=== PATIENT | female | born 1975 | race Caucasian/White ===

== ENCOUNTER → 2024-01-31 | Outpatient (CLI) | payer BC, SELFPAY ==
[2024-01-31 09:41] LABS: Basophils # (Auto) 0.1 Thou/mm3 (0.0-0.2); Basophils % (Auto) 1 % (0-2.5); Eosinophils # (Auto) 0.1 Thou/mm3 (0.0-0.5); Eosinophils % (Auto) 2 % (0-10); Hemoglobin 13.8 g/dL (12.0-16.0); Immature Granulocytes % (Auto) 0 % (0-0); Immature Granulocytes Auto 0.01 Thou/mm3 (0.00-0.00); Lymphocytes # (Auto) 2.2 Thou/mm3 (1.0-4.8); Lymphocytes % (Auto) 36 % (10-50); Mean Corpuscular HGB Conc 34.5 g/dl (31.0-37.0); Mean Corpuscular Hemoglobin 30.9 pg (25.0-35.0); Mean Corpuscular Volume 90 fL (80-100); Monocytes # (Auto) 0.4 Thou/mm3 (0.0-0.8); Monocytes % (Auto) 6 % (0-12); Neutrophils # (Auto) 3.4 Thou/mm3 (1.8-7.7); Neutrophils % (Auto) 55 % (37-80); Nucleated Red Blood Cell % 0 /100 WBC (0); Platelet Count 425 Thou/mm3 (140-440); Red Blood Count 4.46 Miln/mm3 (4.00-5.20); White Blood Count 6.2 Thou/mm3 (3.6-11.0)
[2024-01-31 09:56] LABS: Alanine Aminotransferase 36 U/L (10-49); Albumin, Serum 4.6 gm/dL (3.5-5.0); Albumin/Globulin Ratio 1.6 (1.2-2.2); Alkaline Phosphatase 80 U/L (46-116); Anion Gap 6 (7-16); Aspartate Amino Transferase 22 U/L (0-34); BUN/Creatinine Ratio 26 Ratio (12-20); Bilirubin,Total 0.7 mg/dL (0.3-1.2); Blood Urea Nitrogen 21 mg/dL (9-23); Calcium 9.4 mg/dL (8.3-10.6); Calcium (Corrected) 9.4 mg/dL (8.5-10.1); Carbon Dioxide 29.1 mMol/L (20.0-31.0); Chloride 106 mMol/L (98-107); Creatinine (Component) 0.8 mg/dL (0.6-1.3); Globulin 2.9 gm/dL (2.3-3.5); Glucose 97 mg/dL (74-106); Osmolality,Calculated 284 (275-295); Potassium 4.5 mMol/L (3.4-5.1); Sodium 141 mMol/L (136-145); Total Protein 7.5 gm/dL (5.7-8.2); eGFR > 60 See Note
[2024-01-31 10:09] LABS: Glucose Estimated Average 100 mg/dL (80-131); Hemoglobin A1C 5.1 % Hgb (4.8-6.0)
== END | disposition home or self-care (01) ==
PROVIDERS: Referring Provider Specialist; Visit Provider Specialist
DX: K21.00 Gastro-esophageal reflux disease with esophagitis, without bleeding (principal); K44.9 Diaphragmatic hernia without obstruction or gangrene; R13.14 Dysphagia, pharyngoesophageal phase
CPT/HCPCS: 36415; 80053; 83036; 85025

== ENCOUNTER → 2024-03-07 | Outpatient (CLI) | payer BC, SELFPAY ==
--- NOTE | 2024-03-07 09:19 | XR_ITS ---
Examination: Sacrum and coccyx 3 views Technique: AP inclined AP lateral sacrum and coccyx 3 views Exam date and time: March 07, 2024 0920 hrs. Indications: Patient fell 2 weeks ago with injury to the sacrum, sacrococcygeal pain. Findings: No acute sacral or coccygeal fracture Moderate osteopenia Impression: No acute sacral or coccygeal fracture
== END | disposition home or self-care (01) ==
PROVIDERS: PCP Physician Assistant; Referring Provider Nurse Practitioner; Visit Provider Nurse Practitioner
DX: S39.92XA Unspecified injury of lower back, initial encounter (principal); W19.XXXA Unspecified fall, initial encounter
CPT/HCPCS: 72220

== ENCOUNTER → 2024-04-12 | Outpatient (CLI) | payer BC, SELFPAY ==
--- NOTE | 2024-04-12 15:15 | XR_ITS ---
Examination: Screening digital mammography, bilateral Computer aided detection 3-D breast Tomosynthesis, bilateral Date and time of exam: April 12, 2024 1515 hours Comparison March 02, 2023 Indication: Screening Technique: Nonmagnified MLO, CC views of the breasts to been obtained, reconstructed from 3-D Tomosynthesis images. R2 computer aided detection program utilized for evaluation of suspicious masses and/or abnormal calcifications. 3-D Tomosynthesis images obtained. Findings: The breasts are heterogeneously dense, which may obscure small masses Architectural distortion nipple level right breast, 20 mm 25 mm focal asymmetry upper inner left breast Scar formation left breast with November retraction Impression: BI-RADS Category 0: Incomplete: Need additional imaging evaluation Recommend follow-up spot tomographic views architectural distortion nipple level right breast Recommend follow-up spot tomographic views 25 mm focal asymmetry upper inner left breast Recommend bilateral breast sonography to complete the workup
== END | disposition home or self-care (01) ==
LOC: CDIM 14:57
PROVIDERS: Referring Provider Nurse Practitioner; Visit Provider Nurse Practitioner
DX: Z12.31 Encounter for screening mammogram for malignant neoplasm of breast (principal); R92.8 Other abnormal and inconclusive findings on diagnostic imaging of breast; N64.89 Other specified disorders of breast
CPT/HCPCS: 77063; 77067

== ENCOUNTER → 2024-05-22 | Outpatient (CLI) | payer BC, SELFPAY ==
--- NOTE | 2024-05-22 08:00 | XR_ITS ---
Examination: Breast ultrasound complete, bilateral Date and time of exam: May 22, 2024 0801 hrs. Indications: Mammogram April 12, 2024 right breast architectural distortion nipple level left breast 25 mm focal asymmetry upper inner left breast Technique: Real-time grayscale ultrasonographic imaging bilateral breasts, including all 4 quadrants as well as nipple retroareolar and axillary regions. Findings: Sonographic images right breast 12:00 oval mass versus scar reformation 24 x 23 mm 12:00 oval mass circumscribed 7 x 7 mm 9:00 cyst 4 x 5 mm 25 mm right axillary lymph node Sonographic images left breast Benign cyst Retroareolar probable scar reformation 3.1 x 2.7 cm Impression: BI-RADS Category 3: Probably benign finding This patient should return for bilateral breast sonography in 3 months with the radiologist in attendance
--- NOTE | 2024-05-22 09:00 | XR_ITS ---
Examination: Diagnostic digital mammography, bilateral Computer aided detection 3-D breast Tomosynthesis, bilateral Date and time of exam: 05/22/2024, 7:52 AM Comparisons: February 2023 through March 2024 Indications:Further evaluation of abnormality seen on screening mammogram. Technique: Nonmagnified MLO, CC views of the breasts to been obtained, reconstructed from 3-D Tomosynthesis images. R2 computer aided detection program utilized for evaluation of suspicious masses and/or abnormal calcifications. 3-D Tomosynthesis images obtained. Findings: There are scattered areas of fibroglandular density. Benign-appearing oval circumscribed masses bilaterally. No evidence of abnormal masses or suspicious calcifications. Impression: BI-RADS category 2: Benign findings Recommend 1 year follow-up mammogram
== END | disposition home or self-care (01) ==
DX: R92.323 Mammographic fibroglandular density, bilateral breasts (principal); R92.1 Mammographic calcification found on diagnostic imaging of breast
CPT/HCPCS: 76641; 77062; 77066; G0279

== ENCOUNTER 2024-07-07 05:45 | Day surgery (SDC) | payer BC, SELFPAY ==
--- NOTE | 2024-07-05 06:20 | EKG_ITS ---
[facility] Test Date: 2024-07-05 Pat Name: MASON ANN Department: Room: - Gender: Female [employer] Counselor: [facility] : 1975 Requested By: Jack De La Fuente Order Number: [id number] Reading MD: Jack De La Fuente Measurements Intervals [place] Rate: 64 P: 19 TX: 130 QRS: 35 QRSD: 107 T: 20 QT: 425 QTc: 439 Interpretive Statements SINUS RHYTHM LOW QRS VOLTAGE IN PRECORDIAL LEADS [QRS DEFLECTION < 1.0 mV IN CHEST LEADS] Compared to ECG 06/24/2021 10:44:08 Low QRS voltage now present /store/S0/[id number].pdf
[2024-07-05 08:47] VITALS: BMI 33.7
[2024-07-05 09:35] LABS: Collection Type, Urine Clean Catch
[2024-07-05 09:47] LABS: Basophils % (Auto) 1 % (0-2.5); Eosinophils # (Auto) 0.1 Thou/mm3 (0.0-0.5); Eosinophils % (Auto) 3 % (0-10); Hematocrit 37.7 % (36.0-46.0); Hemoglobin 13.3 g/dL (12.0-16.0); Immature Granulocytes % (Auto) 0 % (0-0); Lymphocytes # (Auto) 2.1 Thou/mm3 (1.0-4.8); Lymphocytes % (Auto) 41 % (10-50); Mean Corpuscular HGB Conc 35.3 g/dl (31.0-37.0); Mean Corpuscular Hemoglobin 30.5 pg (25.0-35.0); Mean Corpuscular Volume 87 fL (80-100); Monocytes # (Auto) 0.3 Thou/mm3 (0.0-0.8); Monocytes % (Auto) 6 % (0-12); Neutrophils # (Auto) 2.5 Thou/mm3 (1.8-7.7); Neutrophils % (Auto) 50 % (37-80); Nucleated Red Blood Cell % 0 /100 WBC (0); Platelet Count 404 Thou/mm3 (140-440); Red Blood Count 4.36 Miln/mm3 (4.00-5.20); White Blood Count 5.1 Thou/mm3 (3.6-11.0)
[2024-07-05 10:01] LABS: Bacteria,Urine Rare; Bilirubin,Urine Negative (Negative); Blood,Urine Negative (Negative); Color,Urine Yellow (Lt Yel-Yel); Glucose, Urine Negative (Negative); Ketones,Urine Negative (Negative); Leukocyte Esterase,Urine Negative (Negative); Nitrite,Urine Negative (Negative); PH,Urine 6.5 (5.0-7.0); Partial Thromboplastin Time 25.6 Seconds (22.0-36.0); Protein,Urine Trace (Neg - Trace); RBC,Urine 1 /hpf (0-3); Specific Gravity,Urine 1.025 (1.001-1.035); Squamous Epithelial Cell,Urine 60 /hpf (0-5); Urobilinogen,Urine Negative mg/dL (0.0-1.0); WBC,Urine 3 /hpf (0-5)
[2024-07-05 10:03] LABS: Clarity,Urine Hazy (Clear/Hazy)
[2024-07-05 10:09] LABS: Alanine Aminotransferase 30 U/L (10-49); Albumin, Serum 4.5 gm/dL (3.5-5.0); Albumin/Globulin Ratio 1.5 (1.2-2.2); Alkaline Phosphatase 81 U/L (46-116); Anion Gap 8 (7-16); Aspartate Amino Transferase 24 U/L (0-34); BUN/Creatinine Ratio 16 Ratio (12-20); Blood Urea Nitrogen 13 mg/dL (9-23); Calcium 9.7 mg/dL (8.3-10.6); Calcium (Corrected) 9.7 mg/dL (8.5-10.1); Carbon Dioxide 30.5 mMol/L (20.0-31.0); Chloride 105 mMol/L (98-107); Creatinine (Component) 0.8 mg/dL (0.6-1.3); Estimated Creatinine Clearance 76.4 mL/min (>60); Globulin 3.1 gm/dL (2.3-3.5); Glucose 109 mg/dL (74-106); Osmolality,Calculated 286 (275-295); Potassium 4.3 mMol/L (3.4-5.1); Sodium 143 mMol/L (136-145); Total Protein 7.6 gm/dL (5.7-8.2); eGFR > 60 See Note
[2024-07-07] VITALS (22 sets, daily range): BP systolic 109–155; BP diastolic 68–97; PULSE 65–92; RESP 12–20; TEMP 36.1–36.6; O2SAT 94–99; BMI 32.5
--- NOTE | 2024-07-07 10:35 | ESOP_ITS ---
Date of Procedure 07/07/24 Pre Op Diagnosis Hiatal hernia and gastroesophageal reflux Post Op Diagnosis Same. Significant peritoneal adhesions requiring lysis of adhesions Procedure Laparoscopic hiatal hernia repair with implantation of phasic ST patch laparoscopic lysis of adhesions and laparoscopic Moo fundoplication. On July 07, 2024 Findings This patient had a previous laparotomy in the past and had a significant adhesions in the upper abdomen require laparoscopic lysis of adhesions to clear the peritoneal surfaces. She also had a 5 cm hiatal hernia that required repair. There were no other remarkable findings. Procedure Description Patient was interviewed in the preop holding area and the procedure was discussed in detail. Risk benefits and alternatives were also discussed and informed consent is obtained. The patient was then brought to the operating room by the nursing staff. The patient was positioned in supine position on the operating table. Gen. anesthesia was administered in a satisfactory manner. The patient was positioned in the modified lithotomy position in the [facility], an acute care hospital. Patient was given prophylactic IV antibiotics half an hour before the procedure started. The Flowtron's are applied to both legs is anti-embolism mechanism. The chest abdomen and genitalia and the legs are prepped and draped in usual manner. An open laparoscopic procedure is carried out and balloon cannula is inserted through the supraumbilical incision. There were adhesions to the peritoneal side of the linea alba and there were significant amount of adhesions to the left upper quadrant and epigastric region that required extensive laparoscopic lysis of adhesions. A balloon cannula was inserted and after that the pneumoperitoneum is achieved. The patient is positioned in the reverse Trendelenburg position. The 30? scope is used. Under direct vision a 5 mm cannula is inserted in the subxiphoid location, 10 mm cannula is inserted in the left midclavicular location, a 10 mm cannula is inserted in the left anterior axillary line and a 5 mm cannula is inserted in the right midclavicular line. A Erlinda retractor is used through the subxiphoid incision to retract the left lobe of the liver to the right side. The harmonic ultrasonic [place] are used to divide the gastrohepatic omentum. The dissection is carried out towards the diaphragmatic hiatus and the esophago- phrenic gastrophrenic and gastrosplenic ligaments are divided with the harmonic ultrasonic [place]. A retroesophageal window is created protecting the posterior vagus nerve and an umbilical tape is passed around the esophagus to be used as a retractor. Further dissection is carried out in the posterior mediastinum and the esophagus is further freed from the mediastinal structures and the esophagus is pulled down into the abdomen. The greater curvature of the stomach is examined and the short gastric vessels on the greater curvature were divided with harmonic ultrasonic [place]. The gastrosplenic ligaments are divided in a similar manner and the gastropancreatic ligaments are divided. After the greater curvature and the fundus is freed completely the examination is carried out in the retroesophageal space and small ligaments are divided. The hemostasis is already achieved. The hiatal hernia defect is examined carefully and it is repaired by intra and extracorporeal technique with a 3-0 Ethibond interrupted sutures. The diaphragmatic repair is carried out posterior to the esophagus. Enough space his left around the esophagus to avoid obstruction. At this point phasic's ST bioabsorbable patch was used and tailored in place and placed in an onlay manner over the diaphragmatic repair and sutured in place. Multiple sutures were taken on both the side of the esophagus between the diaphragm and the patch and also patch was sutured over the diaphragmatic repair. Now the Moo 360? fundoplication is carried out. The orogastric tube is removed and a 50 [place] Chand dilator is inserted into the esophagus and stomach by the anesthesiologist. This is used as an internal stent for calibration of the lumen. Now the freed fundus is brought around the esophagus from the left side behind the esophagus to the front on the right side and it is sutured to the left side of the fundus by intracorporeal and extracorporeal techniques using a 3-0 Ethibond interrupted sutures. The fundoplication was floppy looses fundoplication. There are 3 sutures placed to complete the fundoplication. The sutures passed through right and left side of the fundus as well as anterior wall of the esophagus. The Chand dilator is removed. Multiple Lembert stitchs are taken between the right and left side of the fundus to the esophagus. The operative field is thoroughly irrigated with saline solution and the hemostasis is achieved. The umbilical tape is divided and it is removed. The Interceed an anti-adhesion barrier is placed between the liver and the stomach. The Erlinda retractor is removed under direct vision. All the cannulas are removed under laparoscopic vision and there is no bleeding from the cannula site incisions. The balloon cannula is removed and the pneumoperitoneum is allowed to escape. The midline incision is closed in layers. The fascia is approximated by 2-0 Vicryl continuous sutures. The subcutaneous tissue is approximated by 3-0 chromic suture and the skin is approximated by 4-0 nylon interrupted sutures. The trocar site incisions are closed with the 3-0 chromic and a 4-0 nylon stitches. Sterile dressings are applied. The patient tolerated the procedure very well and is transferred to the recovery room in satisfactory condition. Anesthesia GETA Drains None. Implants Phasic ST patch for the diaphragm Pathology / specimen None Estimated Blood Loss 10 Condition Stable Disposition PACU Surgeon Jack De La Fuente MD Surgical Staff Operation Date: 07/07/24 07:30 Case Staff Anesthesiologist: Sai Negrete RN First Assistant: Jennyfer Kelley surgical supplies sterilizer in processing Noelle surgical supplies sterilizer supervised Odin ARMIJO manager communication
--- NOTE | 2024-07-07 10:45 | SUR.PHASEI ---
1045: Pt. wakes to name then drifts back to sleep, vitals stable, breathing unlabored, no complaint of pain or nausea, x5 dressings to ABD CDI, no active bleed noted, chapman catheter in place, report received from MD Negrete and Ricky ARMJIO.
[2024-07-07] MEDS: fentaNYL CIT INJ 50 mCg/ML AMP 2ML 25 MCG IV ×9 (10:54→15:14)
--- NOTE | 2024-07-07 12:14 | XR_ITS ---
Examination: AP chest single view Technique : AP portable upright chest single view Exam date and time: 04/08/2024 1238 hours INDICATIONS: Onset chest pain today. FINDINGS: Bilateral subsegmental atelectasis Normal heart size No aspiration pneumonia or pulmonary edema IMPRESSION: No aspiration pneumonia or pulmonary edema
--- NOTE | 2024-07-07 12:14 | EKG_ITS ---
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
--- NOTE | 2024-07-07 12:17 | SUR.PHASEII ---
Pt. has c/o chest pain and sore throat, pt. stated pain occurs more with each breath. Made Dr. Negrete aware, he ordered chest xray and ekg, will endorse.
--- NOTE | 2024-07-07 15:40 | SUR.PHASEII ---
1540: Pt. AAOx4, vitals stable, breathing unlabored, no complaint of pain or nausea, dressing to ABD CDI, no active bleed noted, chapman catheter in place, pt. tolerated sips of soda well, gave report to Claudette ARMIJO prior to transfer to room 379, family made aware of transfer to room. Pt. transferred with all personal belongings.
[2024-07-07] MEDS: KETOROLAC INJ 30 MG/ML VIAL IVP (16:09)
[2024-07-07] MEDS: RINGERS LACTATED 1000 ML 1,000 ML 60 ML IV (16:09)
[2024-07-07] MEDS: HYDROmorphone INJ 2 MG/ML VIAL 1 MG IVP ×2 (18:31→22:13)
[2024-07-08] VITALS: BP 105/72; PULSE 72; RESP 18; TEMP 36.1; O2SAT 96
[2024-07-08] MEDS: KETOROLAC INJ 30 MG/ML VIAL IVP ×3 (00:42→11:45)
[2024-07-08] MEDS: HYDROmorphone INJ 2 MG/ML VIAL 1 MG IVP (02:35)
[2024-07-08 04:00] VITALS: BP 104/71; PULSE 64; RESP 18; TEMP 36.1; O2SAT 97
[2024-07-08 08:00] VITALS: BP 93/70; PULSE 68; RESP 17; TEMP 36.1; O2SAT 95
[2024-07-08] MEDS: RINGERS LACTATED 1000 ML 1,000 ML 60 ML IV (09:12)
[2024-07-08] MEDS: BENZOCAINE/MENTHOL 1 LOZENGE PO (09:13)
[2024-07-08] MEDS: traMADol HCL 50 MG TABLET PO (09:13)
[2024-07-08 12:00] VITALS: BP 117/76; PULSE 75; RESP 18; TEMP 36.3; O2SAT 97
--- NOTE | 2024-07-08 13:18 | PD.SURPROG ---
Documentation for date of: 07/08/24 Subjective Subjective Brief History: This patient had a laparoscopic Moo fundoplication and hiatal hernia repair in implantation of a patch. She had adhesions on the right side of the abdomen because of her ruptured gallbladder during surgery. She needed an open surgery. The patient is requiring some pain medication with Dilaudid. He also has some irritation in the throat. Issues. Currently she has pain in the base of the neck which is expected as well as some pain around the lower chest that is also expected from laparoscopy. She is allergic to hydrocodone and she is getting tramadol for pain medication. The Manzanares catheter was removed and she is ambulating to the hallway and planning to send her home. She has been drinking liquids very well without any difficulty she is also able to burp. Exam Vital Signs Temp Pulse Resp BP Pulse Ox O2 Del Method O2 Flow Rate 97.3 F 75 18 117/76 97 Room Air 2 07/08/24 12:00 07/08/24 12:00 07/08/24 12:00 07/08/24 12:07/08/24 12:07/08/24 12:07/08/24 08:00 Narrative Exam The abdomen is soft and nontender except for the incisions. Bowel sounds are hypoactive. Chest is bilaterally clear without any rales or rhonchi extremities are unremarkable. Neck examination is normal. Assessment & Plan Diagnosis (1) GERD (gastroesophageal reflux disease): Status: Acute (2) Hernia, hiatal: Status: Acute (3) Peritoneal adhesions: Status: Acute Plan Advance diet to full liquid diet ambulate in the hallway and discharge patient home today on oral tramadol. She would also need ibuprofen. Procedures Procedure Date 07/07/24 Procedures Laparoscopic hiatal hernia repair with implantation of phasic ST patch laparoscopic lysis of adhesions and laparoscopic Moo fundoplication. On July 07, 2024
--- NOTE | 2024-07-08 13:21 | ESDS_ITS ---
Planned Discharge Date 07/08/24 DS: Providers Provider Date of admission: July 07, 2024 Primary care physician: Gregg Rodriguez MD Attending Provider on Admission: Jack De La Fuente MD Attending Provider on DC: Jack De La Fuente MD Discharging Provider: Jack De La Fuente MD Diagnosis Discharge Diagnosis (1) Hernia, hiatal: Status: Acute (2) GERD (gastroesophageal reflux disease): Status: Acute (3) Peritoneal adhesions: Status: Acute (4) Status post Moo fundoplication: Status: Acute Problem List Completed Was Problem List Reviewed/Reconciled?: Yes Hospital Course Patient was admitted to the hospital after laparoscopic hiatal hernia repair and implantation of a patch she also required extensive lysis of adhesions in the upper abdomen because of the previous history of ruptured gallbladder. Postoperatively she required IV narcotics for pain management she was switched over to [place] and tramadol orally. The Manzanares catheter was removed she was able to get out of the bed and ambulate over the hallways. She is able to take liquid diet without any difficulty and she is being discharged home. Status at Discharge Functional status at discharge: independent ambulation Exam Vital Signs Temp Pulse Resp BP Pulse Ox O2 Del Method O2 Flow Rate 97.3 F 75 18 117/76 97 Room Air 2 07/08/24 12:00 07/08/24 12:00 07/08/24 12:00 07/08/24 12:00 07/08/24 12:00 07/08/24 12:00 07/08/24 08:00 Narrative Exam The abdomen is soft and nondistended there is incisional tenderness chest is bilaterally clear without any rales or rhonchi extremities are unremarkable neck examination is normal. Discharge Plan Plan Patient Disposition: HOME (Self Care) Prescriptions/Referrals Prescriptions/Med Rec: New tramadol 50 mg tablet 50 mg PO BID MDD 4 PRN (Reason: pain) Qty: 30 0RF ibuprofen 800 mg tablet 800 mg PO Q8H MDD 4 PRN (Reason: pain) Qty: 60 0RF Discontinued omeprazole 10 mg capsule,delayed release(DR/EC) 10 mg PO QDAY PRN (Reason: heartburn) Referrals: Jack De La Fuente MD [Physician] - Gregg Vergara MD [Primary Care Provider] - Patient/Caregiver Discharge Instructions Other Discharge Activity Instructions:: May take shower after 48 hours cover with Saran wrap and keep the incisions dry. Follow-up in the office within 10 days. Other Discharge Diet Instructions: With diet for another 10 days. Education Materials: Pain Management After Surgery, Hernia Repair Surgery, Preventing Surgical Site Infections Print Language: Croatian Stand Alone Forms: [employer] Award Info., Patient Portal Info Letter Discharge Order Discharge Orders: Discharge (Routine); Ordered 07/08/24 Ordered By: Jack De La Fuente Procedures Procedure Date 07/07/24 Procedures Laparoscopic hiatal hernia repair with implantation of phasic ST patch laparoscopic lysis of adhesions and laparoscopic Moo fundoplication. On July 07, 2024
[2024-07-08 15:12] VITALS: BP 98/72; PULSE 76; RESP 18; TEMP 36.1; O2SAT 95
[2024-07-08] MEDS: PNEUMOC 20-VAL CONJ-DIP CRM/PF 0.5 ML SYRINGE IMi (15:37)
== END 2024-07-08 15:46 | disposition home or self-care (01) ==
LOC: S2EX 09:10 → S3SX 07-08 13:24
PROVIDERS: PCP Internal Medicine; Referring Provider Specialist; Visit Provider Specialist
PROC: 0DV44ZZ Restriction of Esophagogastric Junction, Percutaneous Endoscopic Approach (ICD-10-PCS; CPT 43280; principal; 2024-07-07 07:30)
DX: K21.9 Gastro-esophageal reflux disease without esophagitis (principal); K44.9 Diaphragmatic hernia without obstruction or gangrene; K66.0 Peritoneal adhesions (postprocedural) (postinfection); K82.8 Other specified diseases of gallbladder; Z01.810 Encounter for preprocedural cardiovascular examination
CPT/HCPCS: 43281; 36415; 71045; 80053; 81001; 85025; 85730; 90677; 93005; A4217; A4649; C1765; C1781; J0694; J1100; J1885; J2250; J2371; J2405; J2704; J3010; J3490; J7120; A9270

== ENCOUNTER 2024-10-05 06:50 | Day surgery (SDC) | payer BC, SELFPAY ==
[2024-10-04 15:04] VITALS: BMI 33.2
[2024-10-05] VITALS (8 sets, daily range): BP systolic 104–179; BP diastolic 67–84; PULSE 65–87; RESP 12–20; TEMP 36.4–36.7; O2SAT 95–100
[2024-10-05] MEDS: SODIUM CHLORIDE 0.9% 500 ML 500 ML 20 ML IV (08:28)
[2024-10-05] MEDS: fentaNYL CIT INJ 50 mCg/ML AMP 2ML (ASD USE ONLY) IVP (08:33)
[2024-10-05] MEDS: MIDAZOLAM INJ 1 MG/ML VIAL 2 ML (ASD USE ONLY) 2 MG IVP (08:33)
== END 2024-10-05 09:20 | disposition home or self-care (01) ==
PROVIDERS: Referring Provider Internal Medicine Gastroenterology; Visit Provider Internal Medicine Gastroenterology
PROC: 0DBE8ZX Excision of Large Intestine, Via Natural or Artificial Opening Endoscopic, Diagnostic (ICD-10-PCS; CPT 45380; principal; 2024-10-05 08:15)
DX: K52.9 Noninfective gastroenteritis and colitis, unspecified (principal); K64.8 Other hemorrhoids; R19.5 Other fecal abnormalities; Z15.09 Genetic susceptibility to other malignant neoplasm
CPT/HCPCS: 45380; J1200; J2250; J3010; J7999

== ENCOUNTER → 2025-01-29 | Outpatient (CLI) | payer BC, SELFPAY ==
[2025-01-29 09:50] LABS: Alanine Aminotransferase 32 U/L (10-49); Albumin, Serum 4.9 gm/dL (3.5-5.0); Albumin/Globulin Ratio 1.6 (1.2-2.2); Alkaline Phosphatase 105 U/L (46-116); Anion Gap 8 (7-16); Aspartate Amino Transferase 24 U/L (0-34); BUN/Creatinine Ratio 16 Ratio (12-20); Bilirubin,Total 1.0 mg/dL (0.3-1.2); Blood Urea Nitrogen 11 mg/dL (9-23); Calcium 10.0 mg/dL (8.3-10.6); Calcium (Corrected) 10.0 mg/dL (8.5-10.1); Carbon Dioxide 28.2 mMol/L (20.0-31.0); Chloride 106 mMol/L (98-107); Creatinine (Component) 0.7 mg/dL (0.6-1.3); Globulin 3.0 gm/dL (2.3-3.5); Glucose 90 mg/dL (74-106); Osmolality,Calculated 282 (275-295); Potassium 4.3 mMol/L (3.4-5.1); Sodium 142 mMol/L (136-145); Total Protein 7.9 gm/dL (5.7-8.2); eGFR > 60 See Note
[2025-01-29 10:00] LABS: Glucose Estimated Average 105 mg/dL (80-131); Hemoglobin A1C 5.3 % Hgb (4.8-6.0)
[2025-01-29 10:01] LABS: Basophils # (Auto) 0.1 Thou/mm3 (0.0-0.2); Basophils % (Auto) 1 % (0-2.5); Eosinophils # (Auto) 0.1 Thou/mm3 (0.0-0.5); Eosinophils % (Auto) 2 % (0-10); Hematocrit 40.6 % (36.0-46.0); Hemoglobin 13.9 g/dL (12.0-16.0); Immature Granulocytes Auto 0.01 Thou/mm3 (0.00-0.00); Lymphocytes # (Auto) 1.9 Thou/mm3 (1.0-4.8); Lymphocytes % (Auto) 37 % (10-50); Mean Corpuscular HGB Conc 34.2 g/dl (31.0-37.0); Mean Corpuscular Hemoglobin 30.8 pg (25.0-35.0); Mean Corpuscular Volume 90 fL (80-100); Monocytes # (Auto) 0.3 Thou/mm3 (0.0-0.8); Monocytes % (Auto) 6 % (0-12); Neutrophils # (Auto) 2.7 Thou/mm3 (1.8-7.7); Neutrophils % (Auto) 53 % (37-80); Nucleated Red Blood Cell # 0.00 Thou/mm3 (0.00-0.00); Nucleated Red Blood Cell % 0 /100 WBC (0); Platelet Count 429 Thou/mm3 (140-440); RDW Standard Deviation 39.4 fL (36.4-46.3); Red Blood Count 4.52 Miln/mm3 (4.00-5.20); White Blood Count 5.1 Thou/mm3 (3.6-11.0)
== END | disposition home or self-care (01) ==
LOC: COPL 08:44
PROVIDERS: Referring Provider Specialist; Visit Provider Specialist
DX: Z01.812 Encounter for preprocedural laboratory examination (principal); N63.21 Unspecified lump in the left breast, upper outer quadrant
CPT/HCPCS: 36415; 80053; 83036; 85025